=== PATIENT | male | born 1935 | race Caucasian/White ===

== ENCOUNTER 2018-12-24 06:45 | Emergency (ER) | payer MEDICARE, OTHER ==
[~2018-12-24] VITALS: Ht 175.3 cm; Wt 90.7 kg
[~2018-12-24 06:45] MED LIST: ASPIR-LOW81 MG PO; ATORVASTATIN CA40 MG PO; CALCIUM 600 +1 EAC5 PO; DAILY MULTIPLE1 EACH PO; DIOVAN HCT 80-1 EACH PO; ELIQUIS5 MG PO; FINASTERIDE5 MG PO; GLUCOSAMINE-CH480 ML PO; KEFLEX500 MG PO; LIPITOR40 MG PO; METOPROLOL SUCC25 MG PO; METOPROLOL TART25 MG PO; OMEGA-3100 MG PO; PANTOPRAZOLE SO20 MG PO; PLAVIX75 MG PO; PODIAPN CAPSUL1 EACH PO; SUPER B COMPLE150 MG PO; TOPROL XL100 MG PO; VALSARTAN-HCTZ1 EAC1 PO
[2018-12-24] MEDS ORDERED: CANDESARTAN-HC1 EACH PO (06:56)
[2018-12-24] MEDS ORDERED: NORCO 5-325 TA1 EACH PO (08:54)
== END 2018-12-24 09:37 | disposition home or self-care (01) ==
LOC: ED 06:45
PROC: 093K7ZZ Control Bleeding in Nasal Mucosa and Soft Tissue, Via Natural or Artificial Opening (ICD-10-PCS; principal; 2018-12-24)
DX: R04.0 Epistaxis (principal); I10 Essential (primary) hypertension; I48.91 Unspecified atrial fibrillation; K21.9 Gastro-esophageal reflux disease without esophagitis; Z90.49 Acquired absence of other specified parts of digestive tract; Z88.1 Allergy status to other antibiotic agents; Z88.5 Allergy status to narcotic agent; Z88.8 Allergy status to other drugs, medicaments and biological substances; Z79.82 Long term (current) use of aspirin; Z79.899 Other long term (current) drug therapy
CPT/HCPCS: 30903; 85025; 85610; 85730; 99283-25

== ENCOUNTER 2019-03-05 15:33 | Emergency (ER) | payer MEDICARE, OTHER ==
[~2019-03-05] VITALS: Ht 175.3 cm; Wt 88.5 kg
[~2019-03-05 15:33] MED LIST changes: +CANDESARTAN-HC1 EACH PO; +NORCO 5-325 TA1 EACH PO
[2019-03-05] MEDS ORDERED: PROVENTIL HFA6.7 GM INH (20:29)
[2019-03-05] MEDS ORDERED: DOXYCYCLINE HY100 MG PO (20:29)
--- NOTE | 2019-03-06 15:32 | EKG ---
[facility] [address] [place] [address] Signed Atrial fibrillation with slow ventricular response Abnormal ECG No previous ECGs available Confirmed by NAIN CRAIG MD ([id number]) on 03/06/2019 3:32:07 PM Electronically Signed By: NAIN CRAIG MD 03/06/19 1532 PATIENT NAME: YAIR KATZ Electrocardiogram DATE OF : 31 PHYSICIAN: NAIN CRAIG MD REPORT #: [id number] REPORT IS CONFIDENTIAL AND NOT TO BE RELEASED WITHOUT AUTHORIZATION
== END 2019-03-05 20:37 | disposition home or self-care (01) ==
LOC: ED 15:33
DX: R09.89 Other specified symptoms and signs involving the circulatory and respiratory systems (principal); J20.9 Acute bronchitis, unspecified; R07.9 Chest pain, unspecified; I48.91 Unspecified atrial fibrillation; I10 Essential (primary) hypertension; Z88.8 Allergy status to other drugs, medicaments and biological substances; Z88.1 Allergy status to other antibiotic agents; Z88.5 Allergy status to narcotic agent; Z79.899 Other long term (current) drug therapy
CPT/HCPCS: 71045; 80053; 83880; 84484; 85025; 93005; 93010; 94640; 96360; 99285-25; J7040

== ENCOUNTER 2022-01-25 06:01 | Emergency (ER) | payer MEDICARE, OTHER ==
[~2022-01-25] VITALS: Ht 175.3 cm; Wt 88.0 kg
[~2022-01-25 06:01] MED LIST changes: +DOXYCYCLINE HY100 MG PO; +PROVENTIL HFA6.7 GM INH
[2022-01-25] MEDS ORDERED: ASPIRIN81 MG PO (06:16)
[2022-01-25] MEDS ORDERED: CEPHALEXIN500 MG PO (06:49)
== END 2022-01-25 09:39 | disposition home or self-care (01) ==
LOC: ED 06:01
DX: R04.0 Epistaxis (principal); I10 Essential (primary) hypertension; I48.91 Unspecified atrial fibrillation; Z88.8 Allergy status to other drugs, medicaments and biological substances; Z88.1 Allergy status to other antibiotic agents; Z88.5 Allergy status to narcotic agent; Z79.899 Other long term (current) drug therapy; Z79.82 Long term (current) use of aspirin
CPT/HCPCS: 30903; 36415; 80053; 85025; 85610; 85730; 99283-25; A9270

== ENCOUNTER 2022-02-01 12:59 | Emergency (ER) | payer MEDICARE, OTHER ==
[~2022-02-01] VITALS: Ht 175.3 cm; Wt 88.0 kg
[~2022-02-01 12:59] MED LIST changes: +ASPIRIN81 MG PO; +CEPHALEXIN500 MG PO
--- OUTSIDE RECORDS SUMMARY | 2022-02-01 13:06 | XMS ---
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 E.Raghavendra VISIT COUNT ([address] [facility] TOTAL 2 NOTE: Visits indicate total known visits. ED/UCC VISIT TRACKING (12 MO.) 02/01/2022 12:59 [facility] TYPE: Emergency COMPLAINT: - NOSE BLEED 01/25/2022 06:02 [facility] TYPE: Emergency COMPLAINT: - NOSE BLEED DIAGNOSES: - Other group home (current) drug therapy - Epistaxis - Essential (primary) hypertension - Unspecified atrial fibrillation - toe sewer (current) use of aspirin - Allergy status to other drugs, medicaments and biological substances - Allergy status to other antibiotic agents - Allergy status to narcotic agent INPATIENT VISIT TRACKING (12 MO.) No inpatient visits to display in this time frame [email or web address]
== END 2022-02-01 16:26 | disposition home or self-care (01) ==
LOC: ED 12:59
DX: D68.32 Hemorrhagic disorder due to extrinsic circulating anticoagulants (principal); R04.0 Epistaxis; I10 Essential (primary) hypertension; I48.91 Unspecified atrial fibrillation; Z88.1 Allergy status to other antibiotic agents; Z88.5 Allergy status to narcotic agent; Z88.8 Allergy status to other drugs, medicaments and biological substances; Z79.899 Other long term (current) drug therapy; Z79.01 Long term (current) use of anticoagulants; Z79.82 Long term (current) use of aspirin
CPT/HCPCS: 99283